=== PATIENT | male | born 1965 | race Caucasian/White ===

== ENCOUNTER 2025-04-03 16:14 | Emergency (ER) | payer OTHER ==
[2025-04-03 16:38] VITALS: TEMP 98; BMI 23.1
[2025-04-03 17:42] LABS: ABSOLUTE IMMATURE GRANULOCYTES 0.03 x10^3/uL (0.0-0.031); BASOPHILS # 0.04 x10^3/uL (0.01-0.08); EOSINOPHIL % 1.2 % (0.8-7.0); EOSINOPHILS # 0.11 x10^3/uL (0.04-0.54); MCHC 33.1 g/dl (32.3-36.5); MEAN CELL VOLUME 89.4 fl (79.0-92.2); MEAN PLT VOLUME 10.9 fl (9.4-12.4); MONOCYTE # 0.59 x10^3/uL (0.30-0.82); MONOCYTE % 6.5 % (5.3-12.2); RDW 12.6 % (12.2-16.4)
[2025-04-03 17:43] LABS: BG HCT 45.0 % (35.4-49); VENOUS BASE EXCESS 1.1 mmol/L (-2-2); VENOUS O2 SATURATION 80.6 % (70-80); VENOUS PCO2 42.6 mmHg (38-52); VENOUS PH 7.405 (7.310-7.410)
[2025-04-03 17:44] LABS: URINE APPEARANCE CLEAR; URINE BILIRUBIN NEGATIVE (NEGATIVE); URINE COLOR YELLOW; URINE GLUCOSE (UA) 3+ (NEGATIVE); URINE KETONE NEGATIVE (NEGATIVE); URINE LEUK ESTERASE NEGATIVE (NEGATIVE); URINE NITRITE NEGATIVE (NEGATIVE); URINE PROTEIN NEGATIVE (NEGATIVE); URINE UROBILINOGEN 1.0 mg/dL (0.2-1.0)
[2025-04-03 17:48] LABS: INR 1.04 (0.83-1.09); PROTHROMBIN TIME (PATIENT) 11.3 SEC (9.7-13.0)
[2025-04-03 17:51] LABS: ACTIVATED PTT 28.4 SECONDS (25.2-36.5)
[2025-04-03 19:05] VITALS: RESP 16
[2025-04-03] MEDS: SODIUM CHLORIDE 1,000 ML IV STA (20:41)
[2025-04-03 21:27] VITALS: BP 134/76; PULSE 74
[2025-04-03] MEDS ORDERED: metFORMIN HCL 500 MG TABLET (FP) ONE (21:41)
[2025-04-03] MEDS: metFORMIN HCL 500 MG TABLET (FP) PO ONE (21:44)
[2025-04-03 22:25] LABS: COCAINE, UR NEGATIVE (NEGATIVE); OPIATES, URI NEGATIVE (NEGATIVE); PHENCYCLIDINE,URINE NEGATIVE (NEGATIVE); URINE AMPHETAMINES NEGATIVE (NEGATIVE); URINE BARBITURATES NEGATIVE (NEGATIVE)
[2025-04-03 22:26] LABS: METHADONE, UR NEGATIVE (NEGATIVE); URINE BENZODIAZEPINES NEGATIVE (NEGATIVE)
[2025-04-03 22:37] LABS: GLUCOSE,RANDOM 284 mg/dL (74-106); TOT PROT 6.5 g/dl (6.4-8.2)
[2025-04-03 22:38] LABS: CO2 23 mmol/L (21-32)
[2025-04-03 22:40] LABS: ALK PHOS 113 U/L (40-150)
[2025-04-03 22:42] LABS: CREATININE 0.82 mg/dL (0.55-1.3); SGOT/AST 12 U/L (5-34); SGPT/ALT 16 U/L (0-55)
== END 2025-04-03 22:13 | disposition left against medical advice (07) ==
LOC: JER 16:14
PROC: 3E0337Z Introduction of Electrolytic and Water Balance Substance into Peripheral Vein, Percutaneous Approach (ICD-10-PCS; principal; 2025-04-03)
DX: E11.65 Type 2 diabetes mellitus with hyperglycemia (principal); R55 Syncope and collapse; R51.9 Headache, unspecified; F10.90 Alcohol use, unspecified, uncomplicated; Y90.0 Blood alcohol level of less than 20 mg/100 ml; V73.5XXA Driver of bus injured in collision with car, pick-up truck or van in traffic accident, initial encounter; Y92.410 Unspecified street and highway as the place of occurrence of the external cause
CPT/HCPCS: 36415; 70450-TC; 71260-TC; 72125-TC; 72128-TC; 72131-TC; 72170-TC-FY; 74177-TC; 80053; 80307; 81003; 82803; 82962; 84484; 85025; 85610; 85730; 87086; 93005; 93010; 99285-25